=== PATIENT | male | born 1965 | race Caucasian/White ===

== ENCOUNTER → 2017-07-26 12:47 | Outpatient (CLI) | payer BC | END | disposition home or self-care (01) | LOC: D.US 12:47 | DX: R59.0 Localized enlarged lymph nodes (principal) ==

== ENCOUNTER → 2019-10-04 12:26 | Outpatient (CLI) | payer BC ==
[2019-10-07 03:06] LABS: TESTOSTERONE - FREE 4.4 pg/mL (7.2-24.0); TESTOSTERONE - SERUM 238 ng/dL (264-916)
== END | disposition home or self-care (01) ==
LOC: D.LAB 12:26
PROVIDERS: ATTEND Urology
DX: E29.1 Testicular hypofunction (principal)

== ENCOUNTER → 2019-11-20 09:32 | Outpatient (CLI) | payer BC | END | disposition home or self-care (01) | LOC: D.LAB 09:32 | PROVIDERS: ATTEND Urology | DX: E29.1 Testicular hypofunction (principal) ==